=== PATIENT | male | born 1955 | race Caucasian/White ===

== ENCOUNTER 2016-05-24 22:21 | Emergency (ER) | payer OTHER ==
[~2016-05-24] VITALS: Ht 180.3 cm; Wt 93.8 kg
[~2016-05-24 22:21] MED LIST: NOHOMEMEDS
[2016-05-24 23:07] LABS: HEMATOCRIT 38.8 % (38.0-50.0); MCHC 33.5 G/DL (30.0-36.0); MCV 83.4 FL (86-99); MEAN PLAT.VOLUME 10.9 uM^3 (9.0-12.4); PLATELET COUNT 91 K/uL (156-360); RBC DIS.WIDTH-CV 13.2 % (11.8-14.6); RBC DIS.WIDTH-SD 39.8 % (39-53); RED BLOOD COUNT 4.65 M/uL (4.00-5.50); WHITE BLOOD COUNT 5.2 K/uL (4.1-10.2)
[2016-05-24 23:23] LABS: CHLORIDE 101 mEq/L (99-109); POTASSIUM 4.2 mEq/L (3.7-5.4); SODIUM 135 mEq/L (136-147)
[2016-05-24 23:25] LABS: GLUCOSE 180 mg/dL (70-99)
[2016-05-24 23:27] LABS: ANION GAP 9 MEQ/L (2-14)
[2016-05-24 23:29] LABS: GFR ESTIMATE (CALCULATED) 55 mL/min/; TROP-I INTERPRETATION NEGATIVE; TROPONIN-I < 0.01 ng/mL (0.0-0.30)
[2016-05-24 23:30] LABS: UREA NITROGEN (BUN) 11 mg/dL (9-23)
[2016-05-25 00:53] LABS: INFLUENZA A VIRAL ANTIGEN NEGATIVE; INFLUENZA B VIRAL ANTIGEN NEGATIVE
[2016-05-25] MEDS ORDERED: VENTOLIN HFA18 GM IH (00:57)
[2016-05-25 01:24] VITALS: BP 153/89
== END 2016-05-25 01:30 | disposition left against medical advice (07) ==
LOC: EME 22:21
PROVIDERS: Emergency Medicine
DX: R07.9 Chest pain, unspecified (principal); R06.00 Dyspnea, unspecified; N28.9 Disorder of kidney and ureter, unspecified; I10 Essential (primary) hypertension; Z85.048 Personal history of other malignant neoplasm of rectum, rectosigmoid junction, and anus; Z87.891 Personal history of nicotine dependence
CPT/HCPCS: 71020; 80048; 84484; 85027; 87502; 93005; 94640; 99281; 99284

== ENCOUNTER 2016-11-23 19:32 | Inpatient (IN) | payer OTHER ==
[~2016-11-23] VITALS: Ht 180.3 cm; Wt 84.0 kg
[~2016-11-23 19:32] MED LIST changes: +VENTOLIN HFA18 GM IH
[2016-11-23 20:57] LABS: HEMATOCRIT 38.2 % (38.0-50.0); MCHC 34.3 G/DL (30.0-36.0); MCV 81.6 FL (86-99); MEAN PLAT.VOLUME 11.9 uM^3 (9.0-12.4); PLATELET COUNT 99 K/uL (156-360); RBC DIS.WIDTH-CV 12.8 % (11.8-14.6); RBC DIS.WIDTH-SD 37.6 % (39-53); RED BLOOD COUNT 4.68 M/uL (4.00-5.50); WHITE BLOOD COUNT 4.4 K/uL (4.1-10.2)
[2016-11-23 21:04] LABS: CHLORIDE 98 mEq/L (99-109); POTASSIUM 4.1 mEq/L (3.7-5.4); SODIUM 134 mEq/L (136-147)
[2016-11-23 21:08] LABS: ANION GAP 12 MEQ/L (2-14); TOTAL BILIRUBIN 0.6 mg/dL (0.0-1.0)
[2016-11-23 21:10] LABS: ALKALINE PHOSPHATASE 132 IU/L (3-129); GFR ESTIMATE (CALCULATED) 55 mL/min/
[2016-11-23 21:11] LABS: UREA NITROGEN (BUN) 10 mg/dL (9-23)
[2016-11-23 21:14] LABS: LIPASE 26 U/L (1.0-51.0)
[2016-11-23 21:16] LABS: GLUCOSE 492 mg/dL (70-99)
[2016-11-23 22:57] LABS: PROTHROMBIN TIME 11.5 SEC (10.2-12.9)
[2016-11-23 23:00] LABS: PTT 25.4 SEC (25-37)
[2016-11-23 23:11] LABS: TROP-I INTERPRETATION NEGATIVE; TROPONIN-I 0.01 ng/mL (0.0-0.30)
[2016-11-24 00:38] LABS: POINT-OF-CARE METER ID UU13113702
[2016-11-24] MEDS ORDERED: AMLODIPINE BESYL5 MG PO (00:48)
[2016-11-24 01:36] LABS: BILIRUBIN NEGATIVE; BLOOD NEGATIVE; COLOR YELLOW ((YELLOW)); GLUCOSE (STRIP) >=500; KETONES NEGATIVE; LEUKOCYTES NEGATIVE; NITRITE NEGATIVE; PROTEIN (STRIP) NEGATIVE; SPECIFIC GRAVITY 1.042 (1.000-1.030); UROBILINOGEN 0.2 MG/DL (0.2-1.0)
[2016-11-24 01:40] LABS: ADD MIUA? NO
[2016-11-24 01:41] LABS: UCUL ADDED? NO
[2016-11-24 03:08] VITALS: BP 172/82
[2016-11-24 03:12] LABS: MAGNESIUM 2.2 mg/dL (1.3-2.7)
[2016-11-24 06:43] LABS: POINT-OF-CARE METER ID UU14117124
[2016-11-24 06:59] LABS: Estimated Average Glucose 269 mg/dL (70-123)
[2016-11-24 07:22] VITALS: BP 171/80
[2016-11-24 08:20] LABS: MCH 27.8 PG (29.0-34.0); MCHC 33.1 G/DL (30.0-36.0); MCV 84.1 FL (86-99); MEAN PLAT.VOLUME 11.6 uM^3 (9.0-12.4); PLATELET COUNT 124 K/uL (156-360); RBC DIS.WIDTH-CV 13.2 % (11.8-14.6); RBC DIS.WIDTH-SD 40.2 % (39-53); RED BLOOD COUNT 4.64 M/uL (4.00-5.50)
[2016-11-24 08:45] LABS: ALKALINE PHOSPHATASE 89 IU/L (3-129); ANION GAP 7 MEQ/L (2-14); CHLORIDE 106 MEQ/L (99-109); GFR ESTIMATE (CALCULATED) > 59 mL/min/; POTASSIUM 3.8 MEQ/L (3.7-5.4); SAMPLE HEMOLYSIS CHECK 0; SAMPLE ICTERIC CHECK 0; SAMPLE LIPEMIA CHECK 0; SODIUM 140 MEQ/L (136-147); TOTAL BILIRUBIN 0.8 MG/DL (0.0-1.0); UREA NITROGEN (BUN) 10 mg/dL (9-23)
[2016-11-24 08:54] LABS: GLUCOSE 213 mg/dL (70-99)
[2016-11-24 09:13] LABS: UR CREATININE CONCENTRATION 181.2 MG/DL
[2016-11-24 11:23] LABS: POINT-OF-CARE METER ID UU14208753
[2016-11-24 15:32] VITALS: BP 136/83
[2016-11-24 16:43] LABS: POINT-OF-CARE METER ID UU14208753
[2016-11-24 19:27] VITALS: BP 152/90
[2016-11-24 21:53] LABS: POINT-OF-CARE METER ID UU14208753
[2016-11-24 23:11] VITALS: BP 151/74
[2016-11-25 04:01] VITALS: BP 149/80
[2016-11-25 06:37] LABS: POINT-OF-CARE METER ID UU14188577
[2016-11-25 06:42] LABS: HEMATOCRIT 35.1 % (38.0-50.0); MCH 29.1 PG (29.0-34.0); MCHC 34.2 G/DL (30.0-36.0); MEAN PLAT.VOLUME 11.7 uM^3 (9.0-12.4); PLATELET COUNT 111 K/uL (156-360); RBC DIS.WIDTH-CV 13.2 % (11.8-14.6); RBC DIS.WIDTH-SD 40.3 % (39-53); RED BLOOD COUNT 4.13 M/uL (4.00-5.50); WHITE BLOOD COUNT 2.8 K/uL (4.1-10.2)
[2016-11-25 07:11] LABS: ALKALINE PHOSPHATASE 72 IU/L (3-129); ANION GAP 6 MEQ/L (2-14); CHLORIDE 105 MEQ/L (99-109); GFR ESTIMATE (CALCULATED) > 59 mL/min/; GLUCOSE 223 mg/dL (70-99); HDL CHOLESTEROL 24 MG/DL (Desirable>=40); NON-HDL CHOLESTEROL 113 mg/dL (Desirable<160); POTASSIUM 4.3 MEQ/L (3.7-5.4); SAMPLE HEMOLYSIS CHECK 0; SAMPLE ICTERIC CHECK 0; SAMPLE LIPEMIA CHECK 0; SODIUM 137 MEQ/L (136-147); TOTAL CHOLESTEROL 137 mg/dL (Desirable<200); TRIGLYCERIDES 496 MG/DL (Normal: <150); UREA NITROGEN (BUN) 13 mg/dL (9-23)
[2016-11-25 07:12] LABS: TOTAL BILIRUBIN 0.5 MG/DL (0.0-1.0)
[2016-11-25 07:38] VITALS: BP 150/81
[2016-11-25 11:37] VITALS: BP 140/77
[2016-11-25 11:38] LABS: POINT-OF-CARE METER ID UU14188577
[2016-11-25] MEDS ORDERED: INSULIN SYRING1 EA11 MC (12:17)
[2016-11-25] MEDS ORDERED: GLUCOMETER MC (12:17)
[2016-11-25] MEDS ORDERED: LEVEMIR100 UNIT/2 SC ×2 (12:18→13:47)
[2016-11-25] MEDS ORDERED: GLUCOPHAGE500 MG PO (13:47)
[2016-11-25] MEDS ORDERED: LISINOPRIL5 MG PO (13:47)
[2016-11-25] MEDS ORDERED: ASPIR-LOW81 MG PO (13:47)
[2016-11-25] MEDS ORDERED: PRAVASTATIN SOD80 MG PO (13:47)
[2016-11-26 15:21] LABS: POINT-OF-CARE METER ID UU13113778
== END 2016-11-25 15:30 | disposition home health service (06) | DRG 683 ==
LOC: EME 19:32 → EDOF 11-24 01:35 → 3EAST 11-24 01:35 → ENRESERV 11-24 01:43 → 3EAST 11-24 02:57
PROVIDERS: Emergency Medicine; Hospitalist; Internal Medicine
DX: N17.9 Acute kidney failure, unspecified (principal); E11.65 Type 2 diabetes mellitus with hyperglycemia; E87.1 Hypo-osmolality and hyponatremia; J44.9 Chronic obstructive pulmonary disease, unspecified; I10 Essential (primary) hypertension; R63.1 Polydipsia; Z87.891 Personal history of nicotine dependence; Z85.048 Personal history of other malignant neoplasm of rectum, rectosigmoid junction, and anus; Z79.899 Other long term (current) drug therapy; Z79.84 Long term (current) use of oral hypoglycemic drugs; Z79.4 Long term (current) use of insulin; Z83.3 Family history of diabetes mellitus
CPT/HCPCS: 70450; 80053; 80061; 81003; 82010; 82043; 82570; 82803; 82948; 83036; 83690; 83735; 84100; 84484; 85027; 85610; 85730; 99281; 99284; J1644; J1815; J7030